=== PATIENT | male | born 1985 | race Two or more races ===

== ENCOUNTER 2020-07-08 16:38 | Emergency (ER) | payer MEDICAID ==
[~2020-07-08] VITALS: Ht 180.3 cm; Wt 72.7 kg
[2020-07-08 16:46] VITALS: BP 147/99
[2020-07-08] MEDS ORDERED: LIDOcaine 1% W/epiNEPHrine 1:200,000 10ml vial IJ ONE (17:05)
[2020-07-08] MEDS ORDERED: TETanus/Pertussis (Acell)/Diphther VAC/PF (Tdap-Adult) 0.5ml syringe IMVAC ONE (17:05)
== END 2020-07-08 18:42 | disposition home or self-care (01) ==
LOC: ER 16:38
DX: S61.211A Laceration without foreign body of left index finger without damage to nail, initial encounter (principal); Z20.3 Contact with and (suspected) exposure to rabies; W18.40XA Slipping, tripping and stumbling without falling, unspecified, initial encounter; Y93.89 Activity, other specified; Y92.89 Other specified places as the place of occurrence of the external cause; Y99.8 Other external cause status
CPT/HCPCS: 12002; 73140; 90471; 90715; 99283

== ENCOUNTER 2020-07-21 21:50 | Emergency (ER) | payer MEDICAID ==
[~2020-07-21] VITALS: Ht 180.3 cm; Wt 75.9 kg
[2020-07-21 22:10] VITALS: BP 147/95
[2020-07-21] MEDS ORDERED: cephalexin 500mg capsule PO ONE (23:30)
[2020-07-21] MEDS ORDERED: CEPH500C5 PO (23:47)
== END 2020-07-22 00:14 | disposition home or self-care (01) ==
LOC: ER 21:51
DX: S61.012D Laceration without foreign body of left thumb without damage to nail, subsequent encounter (principal); L08.9 Local infection of the skin and subcutaneous tissue, unspecified; R11.0 Nausea; W45.8XXD Other foreign body or object entering through skin, subsequent encounter
CPT/HCPCS: 99283